=== PATIENT | female | born 1985 | race Caucasian/White ===

== ENCOUNTER → 2017-02-03 | Outpatient (CLI) | payer OTHER ==
[~2017-02-03] MED LIST: CPR500T PO; FERR325C PO; LVF500T PO; NORE0.353 PO; PREN1TAB39 PO; PSEU120T53 PO; TRM50T PO; no meds
--- NOTE | 2017-02-03 13:12 | Diagnostic Imaging Report ---
PROCEDURE: US Thyroid. TECHNIQUE: Multiple real-time grayscale images were obtained of the thyroid in various projections. INDICATION: Upper midneck pain and swelling for one month. COMPARISON: None. DISCUSSION: The thyroid gland appears normal in echotexture and size with normal color Doppler blood flow. The right thyroid measures 4.5 x 1.7 x 1.3 cm. The left thyroid measures 4.3 x 1.3 x 1.4 cm. There is no discrete thyroid nodule identified. Superior to the thyroid gland, within the anterior midline of the neck, there is a 1.3 x 0.7 x 0.9 cm hypoechoic heterogeneous solid-appearing nodule which could represent a small lymph node though is indeterminate by ultrasound criteria. A complex thyroglossal duct cyst could also have a similar appearance. Recommend clinical correlation. IMPRESSION: 1. The thyroid gland appears within normal limits. 2. There is a solid-appearing hypoechoic subcutaneous nodule within the anterior midline of the neck measuring up to 1.3 cm which likely accounts for the patient's palpable finding. Etiology is indeterminate though an enlarged lymph node or complex thyroglossal duct cyst would be in the differential. Dictated by: Dictated on workstation # [id number]
== END ==
LOC: RAD 12:23
PROVIDERS: ATTEND Family Medicine
DX: R22.1 Localized swelling, mass and lump, neck (principal)
CPT/HCPCS: 76536